=== PATIENT | male | born 1960 | race Caucasian/White ===

== ENCOUNTER 2021-02-06 16:52 | Emergency (ER) | payer BC ==
[2021-02-06 18:01] VITALS: TEMP 99
--- NOTE | 2021-02-06 18:34 | ED ---
Recheck HPI - General Chief Complaint: Recheck/Abnormal Lab/Rx Stated Complaint: Head Injury Time Seen by Provider: 02/06/21 18:10 Source: patient Mode of arrival: ambulatory Limitations: no limitations - History of Present Illness Initial Comments: 60-year-old male patient presents to the emergency department today for evaluation of restlessness and increased anxiety. Patient states he had a fall off of a construction equipment about 2 weeks ago. States he sustained injury to his head and had a wound. States it will get bleeding under control. He was not evaluated after this, states he had minimal symptoms. He did not lose consciousness. He denies persistent headaches, nausea, or episode of vomiting. Denies numbness, tingling, or weakness to the extremities. States he feels restless like he needs to move and he is having a difficult time sleeping. States this started about 3-4 days ago. It is any new or stop medications. Does have history of diabetes. States he has been urinating a little more frequently. Denies any hematuria or dysuria. Patient denies any recent rash, fever, chills, cough, shortness of breath, chest pain, abdominal pain, diarrhea, constipation, back pain, numbness, tingling, dizziness, weakness, or any other complaints. - Related Data Allergies Allergy/AdvReac Type Severity Reaction Status Date / Time Sulfa (Sulfonamide Allergy Unknown Verified 02/06/21 17:57 Antibiotics) Review of Systems ROS Statement: Those systems with pertinent positive or pertinent negative responses have been documented in the HPI. ROS Other: All systems not noted in ROS Statement are negative. Past Medical History Past Medical History: Diabetes Mellitus History of Any Multi-Drug Resistant Organisms: None Reported Past Surgical History: No Surgical Hx Reported Past Psychological History: No Psychological Hx Reported Smoking Status: Never smoker Past Alcohol Use History: Occasional Past Drug Use History: None Reported General Exam Limitations: no limitations General appearance: alert, in no apparent distress, other (Physical well- developed, well-nourished adult male patient in no acute distress. Vital signs upon presentation are temperature 99.0F, pulse 80, respirations 20, blood pressure 148/75, pulse ox 96% on room air.) Eye exam: Present: normal appearance, PERRL, EOMI. Absent: scleral icterus, conjunctival injection, periorbital swelling ENT exam: Present: normal exam, normal oropharynx, mucous membranes moist Respiratory exam: Present: normal lung sounds bilaterally. Absent: respiratory distress, wheezes, rales, rhonchi, stridor Cardiovascular Exam: Present: regular rate, normal rhythm, normal heart sounds. Absent: systolic murmur, diastolic murmur, rubs, gallop, clicks GI/Abdominal exam: Present: soft, normal bowel sounds. Absent: distended, tenderness, guarding, rebound, rigid Neurological exam: Present: alert, oriented X3, CN II-XII intact Expanded Speech: Present: fluid speech Cranial nerves: Nystagmus: Normal Motor strength exam: RUE: 5, LUE: 5, RLE: 5, LLE: 5 Psychiatric exam: Present: normal affect, normal mood Skin exam: Present: warm, dry, intact, normal color. Absent: rash Course Vital Signs 02/06/21 02/06/21 17:57 19:31 Temperature 99.0 F Pulse Rate 80 87 Respiratory 20 18 Rate Blood Pressure 148/75 121/81 O2 Sat by Pulse 96 97 Oximetry Medical Decision Making - Medical Decision Making 60-year-old male patient presenting to the emergency department today for evaluation of increased restlessness. States he cannot sit still. Physical examination is unremarkable. He is neurologically intact with no focal deficits. Urinalysis is negative. CT brain is negative. I did discuss findings and results with him and his . We did discuss possibility of post head injury anxiety related to concussion. He is instructed to follow-up with the primary care physician for recheck in 1-2 days. Return parameters were discussed in detail. He verbalizes understanding and agrees with this plan. Case discussed with my attending Dr. Goode. - Lab Data Lab Results 02/06/21 Range/Units 18:35 Urine Color Light Yellow Urine Appearance Clear (Clear) Urine pH 6.5 (5.0-8.0) Ur Specific [place] 1.010 (1.001-1.035) Urine Protein Negative (Negative) Urine Glucose (UA) Negative (Negative) Urine Ketones Negative (Negative) Urine Blood Negative (Negative) Urine Nitrite Negative (Negative) Urine Bilirubin Negative (Negative) Urine Urobilinogen <2.0 (<2.0) mg/dL Ur Leukocyte Esterase Negative (Negative) - Radiology Data Radiology results: report reviewed, image reviewed CT brain without contrast was obtained. Report was reviewed in its entirety. Impression by Dr. Drake shows no acute intracranial abnormality. Mild enlargement of the ventricles probably due to atrophy. Disposition Clinical Impression: Restlessness, Concussion Disposition: HOME SELF-CARE Condition: Good Instructions (If sedation given, give patient instructions): Concussion (ED), Anxiety (ED) Additional Instructions: Follow-up with her primary care physician for recheck this week. Return for any new, worsening, or concerning symptoms. Is patient prescribed a controlled substance at d/c from ED?: No Referrals: Roderick Servin MD [Primary Care Provider] - 1-2 days Time of Disposition: 19:14
[2021-02-06 18:43] LABS: Appearance,Urine Clear (Clear); Bilirubin,Urine Negative (Negative); Blood,Urine Negative (Negative); Color,Urine Light Yellow; Glucose,Urine (UA) Negative (Negative); Ketones,Urine Negative (Negative); Leukocyte Esterase,Urine Negative (Negative); Nitrite,Urine Negative (Negative); PH, Urine 6.5 (5.0-8.0); Protein,Urine Negative (Negative); Urobilinogen,Urine <2.0 mg/dL (<2.0)
--- NOTE | 2021-02-06 18:54 | CT ---
EXAMINATION TYPE: CT brain wo con DATE OF EXAM: 02/06/2021 COMPARISON: None HISTORY: Head injury 2 weeks ago, feelings of "not being right" anxiety. CT DLP: 1143.4 mGycm Automated exposure control for dose reduction was used. There is slight prominence of the ventricles. There is no mass effect nor midline shift. There is no sign of intracranial hemorrhage. Calvarium is intact. Skull base is intact. There is normal aeration of the mastoid sinuses. IMPRESSION: No acute intracranial abnormality. Mild enlargement of the ventricles probably due to atrophy.
[2021-02-06 19:32] VITALS: BP 121/81; PULSE 87; RESP 18
== END 2021-02-06 19:32 | disposition home or self-care (01) ==
LOC: EC 16:52
DX: S06.0X0A Concussion without loss of consciousness, initial encounter (principal); F41.9 Anxiety disorder, unspecified; E11.9 Type 2 diabetes mellitus without complications; Z88.2 Allergy status to sulfonamides; W13.9XXA Fall from, out of or through building, not otherwise specified, initial encounter
CPT/HCPCS: 70450; 81003; 99284